=== PATIENT | male | born 1950 | race Caucasian/White ===

== ENCOUNTER 2019-06-18 07:22 | Observation (INO) ==
[2019-06-18 07:57] LABS: Bilirubin,Urine Negative (Negative); Blood,Urine Negative (Negative); Clarity,Urine Clear (Clear); Color,Urine Yellow (Yellow); Glucose,Urine (UA) Normal (Normal); Ketones,Urine Trace mg/dL (Negative); Leukocyte Esterase,Urine Negative (Negative); Nitrite,Urine Negative (Negative); Protein,Urine 30 mg/dL (Neg-Trace); Specific Gravity,Urine 1.018 (1.010-1.025); Urobilinogen,Urine Normal (Normal)
[2019-06-18 07:58] LABS: Squamous Epithelial Cell,Urine Few per lpf (None-Few)
[2019-06-18] MEDS ORDERED: Isovue-370 500 ML BOTTLE IVP ONE (07:58)
[2019-06-18 08:16] LABS: Basophils # 0.1 K/mcL (0.0-0.2); Basophils % 0.4 %; Eosinophils # 0.1 K/mcL (0.0-0.6); Eosinophils % 0.4 %; Hematocrit 40.9 % (37.5-50.1); Immature Granulocytes % 0.6 % (0-4); Lymphocytes # 1.9 K/mcL (0.6-4.6); Lymphocytes % 10.3 %; Mean Corpuscular HGB Conc 34.2 g/dL (31.6-35.5); Mean Corpuscular Hemoglobin 31.7 pg (28.0-33.3); Mean Corpuscular Volume 92.5 fL (83.0-100.0); Mean Platelet Volume 10.6 fL (9.4-12.4); Monocytes # 1.9 K/mcL (0.0-1.3); Monocytes % 9.9 %; Neutrophils # 14.7 K/mcL (1.6-8.9); Platelet Count 216 K/mcL (140-400); Red Blood Count 4.42 M/mcL (4.19-5.50); Red Cell Distribution Width 11.9 % (11.5-14.5); Segmented Neutrophils % 78.4 %; White Blood Count 18.7 K/mcL (4.3-11.1)
[2019-06-18] MEDS ORDERED: 0.9 % Sodium Chloride 1,000 ML IVC ONE (08:34)
[2019-06-18] MEDS ORDERED: Ondansetron 4 MG/2 ML VIAL IVP ONE ×2 (08:35→14:44)
[2019-06-18 08:36] LABS: Albumin 4.1 g/dL (3.5-5.7); Albumin/Globulin Ratio 1.1 (1.1-2.2); Bilirubin,Direct 0.4 mg/dL (0.0-0.2); Bilirubin,Indirect 1.7 mg/dL (0.0-1.2); Bilirubin,Total 2.1 mg/dL (0.3-1.0); Calcium 9.7 mg/dL (8.6-10.3); Globulin 3.7 g/dL (2.4-3.5); Potassium 4.1 mEq/L (3.5-5.1); Total Protein 7.8 g/dL (6.4-8.9)
[2019-06-18] MEDS ORDERED: *HR* FentaNYL (PF) 100 MCG/2 ML VIAL IVP ONE (09:02)
[2019-06-18] MEDS ORDERED: Morphine Sulfate 2 MG/ML SYRINGE IVP ONE (09:46)
[2019-06-18] MEDS ORDERED: Ondansetron 4 MG/2 ML VIAL IVP PRN ×2 (11:04→16:05)
[2019-06-18] MEDS ORDERED: Naloxone 0.4 MG/ML INJ IVP PRN ×2 (11:04→16:05)
[2019-06-18] MEDS ORDERED: Ringers Solution, Lactated 1,000 ML IVC SCH (11:15)
[2019-06-18] MEDS ORDERED: cefTRIAXone 1,000 MG in Water for inj. (sterile) 10 ML IVP SCH (13:00)
[2019-06-18 13:11] LABS: Bacteria,Urine Few per hpf (None-Few)
[2019-06-18] MEDS ORDERED: *HR* Promethazine 25 MG/ML VIAL IVP PRN (14:44)
[2019-06-18] MEDS ORDERED: *HR* OxyCODONE Immed Rel 5 MG TABLET PO PRN (14:44)
[2019-06-18] MEDS ORDERED: Dexamethasone 4 MG/ML VIAL ONE ×2 (14:56→15:17)
[2019-06-18] MEDS ORDERED: Ondansetron 4 MG/2 ML VIAL ONE (14:56)
[2019-06-18] MEDS ORDERED: *HR* FentaNYL (PF) 100 MCG/2 ML VIAL ONE (14:56)
[2019-06-18] MEDS ORDERED: *HR* Propofol 200 MG/20 ML VIAL IVP ONE (14:59)
[2019-06-18] MEDS ORDERED: Lidocaine -MPF 2% 2 ML VIAL ONE (15:00)
[2019-06-18] MEDS ORDERED: Isovue-300 50ML VIAL ONE (15:09)
[2019-06-18] MEDS: Ringers Solution, Lactated 1,000 ML IVC SCH ×2 (17:00→21:19)
[2019-06-19 05:11] LABS: Hematocrit 42.4 % (37.5-50.1); Mean Corpuscular Hemoglobin 31.2 pg (28.0-33.3); Mean Corpuscular Volume 94.4 fL (83.0-100.0); Mean Platelet Volume 10.7 fL (9.4-12.4); Platelet Count 256 K/mcL (140-400); Red Blood Count 4.49 M/mcL (4.19-5.50); Red Cell Distribution Width 11.9 % (11.5-14.5); White Blood Count 22.4 K/mcL (4.3-11.1)
[2019-06-19 05:33] LABS: BUN/Creatinine Ratio 16 (6-26); Blood Urea Nitrogen 22 mg/dL (8-23); Calcium 9.3 mg/dL (8.6-10.3); Carbon Dioxide 24 mEq/L (23-29); Chloride 101 mEq/L (98-107); Glucose 155 mg/dL (70-105); Magnesium 2.1 mg/dL (1.6-2.6); Osmolality,Calculated 288 (280-300); Potassium 4.2 mEq/L (3.5-5.1); Sodium 136 mEq/L (136-145); eGFR For African Americans > 60 (> 60); eGFR For Non-African Americans 52 (> 60)
[2019-06-19] MEDS: cefTRIAXone 2,000 MG in Water for inj. (sterile) 20 ML IVP SCH (08:18)
[2019-06-19] MEDS ORDERED: cefTRIAXone 1,000 MG in Water for inj. (sterile) 10 ML IVP SCH (09:00)
[2019-06-19] MEDS: Ringers Solution, Lactated 1,000 ML IVC SCH ×2 (11:31→21:40)
[2019-06-19] MEDS: Lactobacillus 1 EACH CAP.SPRINK PO SCH (21:39)
[2019-06-19] MEDS: *HR* Heparin 5,000 UNIT/ML VIAL SQ SCH (21:40)
[2019-06-20] MEDS: *HR* Heparin 5,000 UNIT/ML VIAL SQ SCH (05:58)
[2019-06-20 06:11] VITALS: BP 144/79
[2019-06-20 06:24] LABS: Basophils % 0.2 %; Eosinophils # 0.1 K/mcL (0.0-0.6); Eosinophils % 0.3 %; Hematocrit 36.8 % (37.5-50.1); Immature Granulocytes % 0.6 % (0-4); Lymphocytes # 2.2 K/mcL (0.6-4.6); Lymphocytes % 14.6 %; Mean Corpuscular HGB Conc 33.4 g/dL (31.6-35.5); Mean Corpuscular Hemoglobin 31.5 pg (28.0-33.3); Mean Corpuscular Volume 94.1 fL (83.0-100.0); Mean Platelet Volume 10.6 fL (9.4-12.4); Monocytes % 7.1 %; Neutrophils # 11.4 K/mcL (1.6-8.9); Platelet Count 242 K/mcL (140-400); Red Blood Count 3.91 M/mcL (4.19-5.50); Segmented Neutrophils % 77.2 %; White Blood Count 14.7 K/mcL (4.3-11.1)
[2019-06-20 06:33] LABS: Hemoglobin 12.3 g/dL (12.9-16.9)
[2019-06-20 06:45] LABS: BUN/Creatinine Ratio 19 (6-26); Blood Urea Nitrogen 22 mg/dL (8-23); Calcium 8.7 mg/dL (8.6-10.3); Carbon Dioxide 25 mEq/L (23-29); Chloride 105 mEq/L (98-107); Glucose 111 mg/dL (70-105); Magnesium 1.9 mg/dL (1.6-2.6); Osmolality,Calculated 290 (280-300); Sodium 138 mEq/L (136-145); eGFR For African Americans > 60 (> 60); eGFR For Non-African Americans > 60 (> 60)
[2019-06-20] MEDS: cefTRIAXone 2,000 MG in Water for inj. (sterile) 20 ML IVP SCH (07:31)
[2019-06-20] MEDS: Lactobacillus 1 EACH CAP.SPRINK PO SCH (07:31)
[2019-06-20] MEDS ORDERED: FLU Vac QV 19-20 (6Month+)/PF 0.5 ML SYRINGE IM ONE (10:19)
== END 2019-06-20 11:33 | disposition home or self-care (01) ==
LOC: EMEROOARM 07:22 → 3ANU 07:22 → SUATTDRO 10:39 → 3ANU 11:55
PROVIDERS: ADMIT Internal Medicine; ATTEND Internal Medicine